=== PATIENT | male | born 1985 | race Asian ===

== ENCOUNTER 2019-06-30 22:29 | Emergency (ER) | payer MEDICAID ==
[~2019-06-30] VITALS: Ht 167.6 cm; Wt 70.8 kg
[2019-06-30 22:33] VITALS: Ht 167.6 cm; Wt 70.8 kg
[2019-07-01 00:28] VITALS: BP 145/84
== END 2019-07-01 00:28 | disposition home or self-care (01) ==
LOC: ED 22:29
DX: L03.116 Cellulitis of left lower limb (principal)
CPT/HCPCS: 90715